=== PATIENT | male | born 1985 | race Caucasian/White ===

== ENCOUNTER 2023-10-16 19:22 | Emergency (ER) | payer OTHER ==
[2023-10-16 19:32] VITALS: BP 159/91; PULSE 89; RESP 18; BMI 91.5
[2023-10-16] MEDS ORDERED: KETOROLAC TROMETHAMINE 30 MG/1 ML VIAL ONE (20:04)
[2023-10-16] MEDS ORDERED: CYCLOBENZAPRINE HCL 10 MG TABLET (FP) ONE (20:04)
[2023-10-16] MEDS ORDERED: diazePAM 5 MG TABLET ONE (20:04)
[2023-10-16] MEDS: KETOROLAC TROMETHAMINE 30 MG/1 ML VIAL IM ONE (20:08)
[2023-10-16] MEDS: CYCLOBENZAPRINE HCL 10 MG TABLET (FP) PO ONE (20:08)
[2023-10-16] MEDS: diazePAM 5 MG TABLET PO ONE (20:09)
[2023-10-16 20:32] LABS: EPI CELLS 5 /uL (0-25.1); HYALINE CASTS 2 /uL (0-3.1); PH,URINE 5.5 (5.0-8.0); URINE APPEARANCE CLEAR; URINE BACTERIA 0 /uL (0-1359); URINE BILIRUBIN NEGATIVE (NEGATIVE); URINE COLOR YELLOW; URINE GLUCOSE (UA) NEGATIVE (NEGATIVE); URINE KETONE TRACE (NEGATIVE); URINE LEUK ESTERASE NEGATIVE (NEGATIVE); URINE NITRITE NEGATIVE (NEGATIVE); URINE PROTEIN 1+ (NEGATIVE); URINE RBC 123 /uL (0-23.9); URINE UROBILINOGEN 0.2 mg/dL (0.2-1.0); URINE WBC 14 /uL (0-25.8)
[2023-10-16 21:15] LABS: BASO % 0.4 % (0-2.0); EOS % 0.2 % (0-4.5); HEMATOCRIT 42.6 % (35.4-49); LYMPH % 8.4 % (8-40); MCH 26.6 pg (25.7-33.7); MCHC 32.9 g/dl (32.0-35.9); MEAN CELL VOLUME 80.8 fl (80-96); MEAN PLT VOLUME 7.9 fl (7.5-11.1); MONO % 5.4 % (3.8-10.2); NEUT % 85.6 % (42.8-82.8); PLATELET COUNT 287 10^3/uL (134-434); RBC 5.27 M/mm3 (4.00-5.60); RDW 13.8 % (11.9-15.9); WHITE BLOOD COUNT 12.8 K/mm3 (4.0-10.0)
[2023-10-16 21:51] LABS: ERYTHROCYTE SEDIMENTATION RATE 7 mm/hr (0-10)
[2023-10-16 21:52] VITALS: TEMP 97.9
[2023-10-16 22:00] LABS: POTASSIUM 3.6 mmol/L (3.5-5.1)
[2023-10-16 22:02] LABS: ALBUMIN 4.2 g/dl (3.4-5.0); BLOOD UREA NITROGEN 11.7 mg/dL (7-18); CALCIUM 9.3 mg/dL (8.5-10.1)
[2023-10-16 22:05] LABS: CREATININE 0.7 mg/dL (0.55-1.3)
[2023-10-16 22:19] LABS: BILIRUBIN,TOTAL 0.4 mg/dL (0.2-1)
== END 2023-10-16 22:40 | disposition home or self-care (01) ==
LOC: JER 19:22 → JERFT 19:22
PROC: 3E0233Z Introduction of Anti-inflammatory into Muscle, Percutaneous Approach (ICD-10-PCS; principal; 2023-10-16)
DX: M54.42 Lumbago with sciatica, left side (principal); R31.9 Hematuria, unspecified; B34.9 Viral infection, unspecified; R11.10 Vomiting, unspecified; R19.7 Diarrhea, unspecified
CPT/HCPCS: 36415; 74176-TC; 80053; 81003; 82550; 85025; 85651; 87086; 99284-25